=== PATIENT | female | born 1980 | race Two or more races ===

== ENCOUNTER → 2018-05-13 | Emergency (ER) | payer OTHER ==
[~2018-05-13] VITALS: Ht 170.2 cm; Wt 99.8 kg
[~2018-05-13] MED LIST: TOPROL XL25 M1 PO; VISTARIL25 MG PO
== END | disposition home or self-care (01) ==
LOC: ER 08:16
DX: K52.9 Noninfective gastroenteritis and colitis, unspecified (principal); B34.9 Viral infection, unspecified